=== PATIENT | male | born 1975 | race Caucasian/White ===

== ENCOUNTER 2021-10-09 19:28 | Emergency (ER) | payer OTHER, SELFPAY ==
--- NOTE | ~2021-10-09 | XR_ITS ---
XR wrist LT min 3V 10/09/2021 19:51 INDICATION: Left wrist pain PROCEDURE: 4 views left wrist COMPARISON: No prior studies for comparison. FINDINGS: Fracture, dislocation or subluxation is not identified. There is a nondisplaced triquetral fracture. The soft tissues appear within normal limits. No foreign bodies are identified. IMPRESSION: 1: Nondisplaced triquetral fracture. Reviewed, dictated and finalized at location A.
[2021-10-09 19:38] VITALS: BP 142/86; PULSE 70; RESP 20; TEMP 36.9; O2SAT 98
[2021-10-09 20:02] LABS: Glucose Point of Care 143 mg/dl (65-105)
--- NOTE | 2021-10-09 20:08 | ED.GENADULT ---
HPI - General Adult General Chief complaint: Extremity Injury, Upper Stated complaint: Left Wrist Pain Source: patient Mode of arrival: ambulatory Limitations: no limitations History of Present Illness HPI narrative: Patient presents for evaluation of left wrist pain. Indicates symptom onset was 4 nights ago. He cannot identify any precipitating cause or injury. He states the pain is constant, 9 out of 10 in severity, without descriptive quality. Movement makes his pain worse. He does have decreased range of motion in the left wrist. He denies any paresthesias. He is right-hand dominant. He has been taking ibuprofen 1000 mg twice daily without any significant improvement in his pain thereafter. He has also been applying ice. His is a nurse and thought he may have gout. No personal history of gout. No additional complaints or concerns Related Data Allergies Allergy/AdvReac Type Severity Reaction Status Date / Time No Known Allergies Allergy Verified 10/09/21 19:44 Review of Systems Review of Systems: CONSTITUTIONAL: Denies fever, chills, or sweats. EYES: Denies visual changes, redness, or discharge. ENT: Denies rhinorrhea, congestion, sore throat, or otalgia. CARDIOVASCULAR: Denies chest pain, palpitations, or edema. RESPIRATORY: Denies cough or dyspnea. GASTROINTESTINAL: Denies abdominal pain, nausea, vomiting, or diarrhea. GENITOURINARY: Denies dysuria or hematuria. SKIN: Denies rash or itching. MUSCULOSKELETAL: Reports left wrist pain. NEUROLOGIC: Denies headache, numbness, dizziness, or weakness. PSYCHIATRIC: Denies anxiety or depression. FOR[facility]LY [facility], [facility] Past Medical History Medical History (Updated 10/09/21 @ 20:11 by VIJAYA Prince, ) History of prediabetes Surgical History Surgical History S/P rotator cuff repair Family History Family History Father Family history non-contributory Social History Social History Tobacco type: smokeless tobacco Substance use: never Living arrangements: with family Gender identity (if verbalized by the patient): Male Sexual Orientation (if Verbalized by the Patient): Straight or Heterosexual Spiritual care concerns: No Exam Narrative: GENERAL: Well-appearing, well-nourished, and in no acute distress. HEAD: Normocephalic, atraumatic. EYES: PERRLA and EOMI. ENT: Nares clear, no rhinorrhea or epistaxis. Mucous membranes moist. Oropharynx without tonsillar hypertrophy exudate or other lesions. Bilateral TMs pearly florence nonbulging NECK: Supple. No adenopathy or masses. No carotid bruits or JVD CHEST: Clear to auscultation. No respiratory distress. No wheezes rales or rhonchi HEART: Regular rate and rhythm. No murmur heard. Normal peripheral pulses. ABDOMEN: Soft, nontender, nondistended, normal active bowel sounds. EXTREMITIES: Decreased range of motion of the left wrist. 3 out of 5 handgrip strength on the left. 5 out of 5 handgrip strength on the right. Tenderness noted over proximal hand adjacent to the distal ulna. There is some swelling in left wrist. SKIN: Warm, dry, no rash. NEURO: No focal deficits. Alert and oriented x3. PSYCH: Normal mood and affect. Course Course Emergency Course: This is a 46-year-old male that presented for evaluation of left wrist pain. There is no precipitating injury to his knowledge. X-ray showed quite triquetral fracture. Placed in volar splint. Recommended sling, which he declined. Provided with follow-up information for orthopedics and hand surgeon. Advised to call them tomorrow for an appointment. Will DC with hydrocodone. Go to the ER for paresthesias, temperature changes, intractable pain. Patient in agreement with plan of care Level of Care: Express Care Visit Vital Signs Vital signs: Vital Signs Temperature 36.9 C 0
== END 2021-10-09 20:22 | disposition home or self-care (01) ==
PROVIDERS: Emergency Provider Nurse Practitioner
DX: S62.115A Nondisplaced fracture of triquetrum [cuneiform] bone, left wrist, initial encounter for closed fracture (principal); X58.XXXA Exposure to other specified factors, initial encounter; R73.03 Prediabetes
CPT/HCPCS: 29125; 73110; 82948; 99214; A4565; G0463